=== PATIENT | female | born 1990 | race Caucasian/White ===

== ENCOUNTER 2023-03-24 19:42 | Observation (INO) | payer BC, OTHER, SELFPAY ==
[~2023-03-24] VITALS: Ht 177.8 cm; Wt 153.7 kg
[2023-03-24] MEDS ORDERED: AMPICILLIN SOD/SULBACTAM SOD 3 GM in D5W MINI-BAG PLUS 100 ML IV ONE (21:50)
[2023-03-24] MEDS ORDERED: ACETAMINOPHEN 500 MG TAB PO ONE (21:50)
[2023-03-24] MEDS ORDERED: LIDOCAINE 1% MDV 20ML VIAL SC ONE (21:50)
[2023-03-24] MEDS ORDERED: RABIES IMMUNE GLOBULIN 1500 INTERNATIONAL UNIT/5ML VIAL IM.IMMUN ONE ×2 (22:25→22:35)
[2023-03-24] MEDS ORDERED: RABIES VACCINE HUMAN 2.5 INTERNATIONAL UNITS/ML VIAL IM ONE (22:25)
[2023-03-24] MEDS ORDERED: BOOSTRIX VACCINE (TETANUS/DIPHTH/ACEL. PERTUSSIS) 0.5ML SYR IM ONE (22:25)
[2023-03-24] MEDS ORDERED: GLYCOPYRROLATE INJ 0.2 MG/ML 2 ML VIAL As Ordered ONE (23:05)
[2023-03-24] MEDS ORDERED: ONDANSETRON 4MG 2ML VIAL As Ordered ONE (23:05)
[2023-03-24] MEDS ORDERED: LIDOCAINE 2% 100MG/5ML SDV (FOR ANES.) As Ordered ONE (23:05)
[2023-03-24] MEDS ORDERED: propofoL 200 MG/20 ML VIAL As Ordered ONE (23:05)
[2023-03-24] MEDS ORDERED: MIDAZOLAM INJ 2MG/2ML VIAL As Ordered ONE (23:06)
[2023-03-24] MEDS ORDERED: fentaNYL 100 MCG/2 ML INJECTION As Ordered ONE (23:06)
[2023-03-24] MEDS ORDERED: LR 1,000 ML IV SCH ×2 (23:15→23:20)
[2023-03-24] MEDS ORDERED: MEPERIDINE 25 MG/ML 1ML VIAL IV PRN (23:20)
[2023-03-24] MEDS ORDERED: fentaNYL 100 MCG/2 ML INJECTION IV PRN (23:20)
[2023-03-24] MEDS ORDERED: oxyCODONE 5MG TAB PO PRN (23:20)
[2023-03-24] MEDS ORDERED: ONDANSETRON 4MG 2ML VIAL IV PRN (23:20)
[2023-03-24] MEDS ORDERED: HYDROMORPHONE HCL 0.5 MG/ 0.5 ML SYRINGE IV PRN (23:20)
[2023-03-24] MEDS ORDERED: LIDOCAINE W/EPINEPHRINE 1% 20ML VIAL As Ordered ONE (23:56)
[2023-03-25] VITALS (8 sets, daily range): BP systolic 110–140; BP diastolic 63–86; TEMP 97–98.4; O2SAT 94–97
[2023-03-25] MEDS ORDERED: BACITRACIN OINTMENT 30GM TUBE As Ordered ONE (00:16)
[2023-03-25] MEDS ORDERED: traMADol 50 MG TAB PO PRN (00:50)
[2023-03-25] MEDS ORDERED: AMPICILLIN SOD IV SCH (00:50)
[2023-03-25] MEDS ORDERED: SULBACTAM SOD IV SCH (00:50)
[2023-03-25] MEDS ORDERED: NS IV SCH (00:50)
[2023-03-25] MEDS ORDERED: ONDANSETRON 4MG 2ML VIAL IV PRN (00:50)
[2023-03-25] MEDS ORDERED: LR 1,000 ML IV SCH (00:50)
[2023-03-25] MEDS ORDERED: ACETAMINOPHEN TAB 650MG DOSE (2X325MG) PO PRN (00:50)
[2023-03-25 01:13] LABS: BASO % 0.2 % (0.0-1.0); EOS # 0.1 10^3/uL (0.0-0.5); EOS % 0.7 % (0.0-3.0); HEMATOCRIT 36.7 % (36.0-47.0); HEMOGLOBIN 11.9 g/dl (12.0-15.5); LYMPH # 1.8 10^3/uL (1.5-5.0); LYMPH % 18.3 % (24.0-44.0); MEAN CORPUSCULAR HEMOGLOBIN 30.7 pg (27.0-33.0); MEAN CORPUSCULAR HGB CONC 32.4 g/dl (32.0-36.5); MEAN CORPUSCULAR VOLUME 94.6 fl (80.0-96.0); MONO # 0.5 10^3/uL (0.0-0.8); MONO % 4.8 % (2.0-8.0); NEUTROPHILS # 7.6 10^3/uL (1.5-8.5); NEUTROPHILS % 75.6 % (36.0-66.0); PLATELET COUNT, AUTOMATED 247 10^3/uL (150-450); RED BLOOD COUNT 3.88 10^6/uL (4.00-5.40)
[2023-03-25 01:35] LABS: BLOOD UREA NITROGEN 13 MG/DL (9-23); CALCIUM LEVEL 8.4 MG/DL (8.5-10.1); CARBON DIOXIDE LEVEL 24 MMOL/L (20-31); CHLORIDE LEVEL 107 MMOL/L (98-107); CREATININE FOR GFR 0.69 MG/DL (0.55-1.30); GLOMERULAR FILTRATION RATE > 60.0 (>60); GLUCOSE, FASTING 99 MG/DL (60-100); POTASSIUM SERUM 4.3 MMOL/L (3.5-5.1); SODIUM LEVEL 138 MMOL/L (136-145)
[2023-03-25] MEDS: POLYSPORIN OPHTH OINT 3.5 GM OD SCH ×3 (02:37→09:45)
[2023-03-25] MEDS: AMPICILLIN SOD/SULBACTAM SOD 3 GM in D5W MINI-BAG PLUS 100 ML IV SCH ×2 (03:53→09:44)
[2023-03-25] MEDS ORDERED: LEXA1TAB PO (09:43)
[2023-03-25] MEDS ORDERED: AUGM500T34 PO (10:41)
== END 2023-03-25 11:43 | disposition home or self-care (01) ==
LOC: EDBD 19:42 → M ED 19:42 → M SDC 19:43 → M ED INP 19:44 → M PED 03-25 01:25
PROVIDERS: ADMIT Plastic Surgery Surgery of the Hand; ATTEND Plastic Surgery Surgery of the Hand
DX: S01.85XA Open bite of other part of head, initial encounter (principal); S01.151A Open bite of right eyelid and periocular area, initial encounter; S60.512A Abrasion of left hand, initial encounter; W54.0XXA Bitten by dog, initial encounter; Y92.89 Other specified places as the place of occurrence of the external cause; Y93.K1 Activity, walking an animal; Z23 Encounter for immunization; E66.01 Morbid (severe) obesity due to excess calories
CPT/HCPCS: 13132; 13151; 36415; 70486; 73130; 80048; 85025; 87635; 90471; 90715; 96361; 96365; 96366; 99284; J0295; J1100; J1170; J2250; J2405; J3010